=== PATIENT | female | born 1980 | race Caucasian/White ===

== ENCOUNTER → 2021-11-27 11:26 | Outpatient (BNVA) | payer OTHER, SELFPAY | PROVIDERS: Family Provider Family Medicine; Visit Provider Family Medicine | DX: Z00.00 Encounter for general adult medical examination without abnormal findings (principal) | CPT/HCPCS: 80053; 80061; 85025 ==

== ENCOUNTER 2021-12-27 12:08 | Outpatient (CLI) | payer OTHER, SELFPAY ==
--- NOTE | 2021-12-27 12:19 | US_ITS ---
WS: [id number] Exam: US renal BI* [id number] Date/Time of Exam: 12/27/2021 12:31 PM Reason For Exam: FAMILY HX OF CARCINOMA OF KIDNEY The kidneys are of normal size, shape and location. No sign of solid or cystic renal mass. No sign of renal obstruction. The right kidney measures 8.84 cm x 4.2 x 4.76 cm. Right renal cortex measures 1 cm greatest thickness. The left kidney measures 8.6 x 5.12 x 4.2 cm. Left renal cortex was 1.12 cm at greatest thickness. The abdominal aorta is normal in caliber without aneurysmal dilatation. Urinary bladder is smooth in contour. No intrinsic or extrinsic bladder filling defects were noted. US/US renal BI* [id number] IMPRESSION: 1. Normal bilateral renal ultrasound.
== END 2021-12-27 12:09 | disposition home or self-care (01) ==
PROVIDERS: PCP Family Medicine; Visit Provider Family Medicine
DX: Z80.51 Family history of malignant neoplasm of kidney (principal)
CPT/HCPCS: 76770